=== PATIENT | male | born 1970 | race Caucasian/White ===

== ENCOUNTER → 2016-09-24 | Outpatient (CLI) | payer BC ==
[~2016-09-24] MED LIST: ASPIRIN EC81 MG PO
== END ==
LOC: HEART 5 11:14
DX: I25.10 Atherosclerotic heart disease of native coronary artery without angina pectoris (principal); E78.5 Hyperlipidemia, unspecified; Z02.89 Encounter for other administrative examinations

== ENCOUNTER → 2020-11-14 | Outpatient (CLI) | payer BC ==
[~2020-11-14] MED LIST changes: +CO Q-10200 MG PO; +CRESTOR40 MG PO; +IMDUR ER TAB 3030 MG PO; +LISINOPRIL5 MG PO; +LOPRESSOR 25 MG25 MG PO; +MULTIVITAMINS1 EAC1 PO; +NITROSTAT0.4 MG SL; +PLAVIX75 MG PO; +PROTONIX40 MG PO; +VASCEPA1 GM PO
== END ==
LOC: HEART 5 11-07 08:00
DX: I25.10 Atherosclerotic heart disease of native coronary artery without angina pectoris (principal); Z02.89 Encounter for other administrative examinations
CPT/HCPCS: 78452; A9502

== ENCOUNTER 2021-04-03 12:27 | Emergency (ER) | payer BC ==
[~2021-04-03] VITALS: Ht 180.3 cm; Wt 88.5 kg
== END 2021-04-03 15:55 | disposition home or self-care (01) ==
LOC: ER1 12:27
DX: Z23 Encounter for immunization (principal); U07.1 COVID-19; E78.5 Hyperlipidemia, unspecified; Z95.1 Presence of aortocoronary bypass graft
CPT/HCPCS: 99283; M0243